=== PATIENT | male | born 1945 | race African-American/Black ===

== ENCOUNTER 2017-09-04 16:23 | Emergency (ER) | payer MEDICARE ==
[2017-09-04 17:14] LABS: #Lymphocytes 1.3 thou/uL (1.20-3.40); #Neutrophils 10.1 thou/uL (1.40-6.50); %Basophils 0.1 % (0.0-1.0); %Eosinophils 0.3 % (0.0-10.0); %Lymphocytes 10.5 % (21.0-51.0); %Monocytes 8.3 % (0.0-10.0); %Neutrophils 80.9 % (42.0-75.0); Hemoglobin 11.5 g/dL (14.0-18.0); Mean Corpuscular HGB CONC 31.7 g/dL (32.0-36.0); Mean Corpuscular Hemoglobin 31.5 pg (27.0-31.0); Mean Corpuscular Volume 99.4 fl (80.0-94.0); Mean Platelet Volume 8.2 fL (7.4-10.4); Platelet Count 207 thou/uL (130-400); RBC Distribution Width 12.5 % (11.5-14.5); Red Blood Cell (RBC) Count 3.66 mill/uL (4.70-6.10); White Blood Cell (WBC) Count 12.5 thou/uL (4.8-10.8)
[2017-09-04 17:35] LABS: ALT (SGPT) 22 U/L (8-55); AST (SGOT) 19 U/L (5-34); Albumin 4.1 g/dL (3.4-4.8); Alkaline Phosphatase 129 U/L (40-150); Anion Gap 12 mmol/L (10-20); BUN (Urea Nitrogen) 37 mg/dL (8.4-25.7); Bilirubin, Total 1.3 mg/dL (0.2-1.2); Calc. Creatinine Clearance 0 mL/min (70-130); Calcium 10.1 mg/dL (7.8-10.44); Carbon Dioxide 24 mmol/L (23-31); Chloride 102 mmol/L (98-107); Estimated GFR-MDRD 41; Globulin 4.1 g/dL (2.4-3.5); Glucose 152 mg/dL (83-110); Lipase 27 U/L (8-78); Potassium 4.2 mmol/L (3.5-5.1); Protein, Total 8.2 g/dL (5.8-8.1); Sodium 134 mmol/L (136-145)
[2017-09-04 19:09] LABS: CKMB 2.3 ng/mL (0-6.6); Troponin I 0.016 ng/mL (< 0.028)
[2017-09-04 20:04] LABS: Bilirubin Negative (Negative); Blood, Urine Negative (Negative); Clarity CLEAR (Clear); Glucose, Urine (Dipstick) Negative (Negative); Leukocyte Negative (Negative); Nitrite Negative (Negative); Protein, Urine (Dipstick) Negative (Neg-Trace); Specific Gravity, Urine 1.015 (1.002-1.036)
[2017-09-04] MEDS ORDERED: Dicyclomine 20 MG TAB ONE (20:08)
--- NOTE | 2017-09-04 20:17 | RAD ---
FRONTAL VIEW CHEST: 09/04/17 Two views provided. INDICATION: Short of breath. COMPARISON: 08/07/11. FINDINGS: There is an enlarged cardiac silhouette with prominence of the pulmonary vasculature and interstitial prominence. No obvious effusion or discrete pneumothorax. There is vascular calcifications. IMPRESSION: Evidence of CHF. Correlate clinically and as necessary imaging followup may be obtained. POS: [facility]
--- NOTE | 2017-10-18 22:13 | EKG ---
Test Reason : Blood Pressure : / mmHG Vent. Rate : 069 BPM Atrial Rate : 079 BPM P-R Int : 000 ms QRS Dur : 162 ms QT Int : 442 ms P-R-T Axes : 000 -37 039 degrees QTc Int : 473 ms Atrial fibrillation Left axis deviation Right bundle branch block Abnormal ECG Confirmed by ATILIO RODAS D.O. ([id number]), [employer]IGHTOWER ([id number] on 10/18/2017 10:12:59 PM Referred By: Confirmed By:ATILIO RODAS D.O.
== END 2017-09-04 20:52 | disposition home or self-care (01) ==
LOC: ERS 16:23
DX: R10.9 Unspecified abdominal pain (principal); I10 Essential (primary) hypertension; E11.9 Type 2 diabetes mellitus without complications; E78.00 Pure hypercholesterolemia, unspecified
CPT/HCPCS: 36415; 71045; 80053; 81003; 82553; 83690; 84484; 85025; 93005

== ENCOUNTER 2019-04-26 15:09 | Emergency (ER) | payer MEDICARE | END 2019-04-26 17:05 | disposition home or self-care (01) | LOC: ERS 15:09 | DX: L30.9 Dermatitis, unspecified (principal); I10 Essential (primary) hypertension; E11.9 Type 2 diabetes mellitus without complications; E78.00 Pure hypercholesterolemia, unspecified; Z79.82 Long term (current) use of aspirin; Z79.899 Other long term (current) drug therapy | CPT/HCPCS: 99282 ==

== ENCOUNTER 2022-10-04 06:12 | Day surgery (SDC) | payer MEDICARE ==
[2022-09-03 14:57] VITALS: BMI 48.1
[2022-10-04] MEDS ORDERED: KETAMINE 100 MG/ML (5ML VIAL) ONE (07:24)
[2022-10-04] MEDS ORDERED: Vasopressin 20 UNITS/ML VIAL ONE (07:25)
[2022-10-04] MEDS ORDERED: Dextrose 50% Abboject 50 ML SYRINGE ONE (07:31)
[2022-10-04] MEDS ORDERED: Glycopyrrolate 0.2 MG/ML 5 ML SYRINGE ONE (07:51)
[2022-10-04] MEDS ORDERED: PROPOFOL 200 MG/20 ML VIAL ONE (07:51)
[2022-10-04] MEDS ORDERED: Lidocaine 1% PF 5 ML VIAL ONE (07:51)
== END 2022-10-04 10:22 | disposition home or self-care (01) ==
LOC: SDC 06:12
PROVIDERS: ATTEND Internal Medicine
PROC: 0DJ08ZZ Inspection of Upper Intestinal Tract, Via Natural or Artificial Opening Endoscopic (ICD-10-PCS; principal; 2022-10-04)
PROC: 0DBK8ZX Excision of Ascending Colon, Via Natural or Artificial Opening Endoscopic, Diagnostic (ICD-10-PCS; 2022-10-04)
PROC: 0DBL8ZX Excision of Transverse Colon, Via Natural or Artificial Opening Endoscopic, Diagnostic (ICD-10-PCS; 2022-10-04)
PROC: 0DBH8ZX Excision of Cecum, Via Natural or Artificial Opening Endoscopic, Diagnostic (ICD-10-PCS; 2022-10-04)
DX: D12.0 Benign neoplasm of cecum (principal); D12.2 Benign neoplasm of ascending colon; D12.3 Benign neoplasm of transverse colon; K57.31 Diverticulosis of large intestine without perforation or abscess with bleeding; K64.8 Other hemorrhoids; D62 Acute posthemorrhagic anemia; E78.5 Hyperlipidemia, unspecified; I12.9 Hypertensive chronic kidney disease with stage 1 through stage 4 chronic kidney disease, or unspecified chronic kidney disease; E11.22 Type 2 diabetes mellitus with diabetic chronic kidney disease; N18.30 Chronic kidney disease, stage 3 unspecified; G47.33 Obstructive sleep apnea (adult) (pediatric); E66.01 Morbid (severe) obesity due to excess calories; Z68.42 Body mass index [BMI] 45.0-49.9, adult; Z79.01 Long term (current) use of anticoagulants; Z79.02 Long term (current) use of antithrombotics/antiplatelets; Z79.4 Long term (current) use of insulin; Z79.899 Other long term (current) drug therapy; Z95.0 Presence of cardiac pacemaker; Z95.5 Presence of coronary angioplasty implant and graft
CPT/HCPCS: 36416; 88305; J2704; J7999